=== PATIENT | male | born 1985 | race Caucasian/White ===

== ENCOUNTER 2021-11-04 13:56 | Emergency (ER) | payer OTHER, SELFPAY ==
--- NOTE | ~2021-11-04 | US_ITS ---
US scrotum doppler INDICATION: Left testicular pain for one month TECHNIQUE: Testicular sonogram utilizing grayscale and color Doppler FINDINGS: The testes are normal in size and appearance. No focal lesions are seen. The right testes measures 4.9 x 2.9 x 2.5 cm centimeters, and the left testis measures 4 x 3.2 x 2.6 cm cm. There is n ormal vascular flow to both testes. The right and left epididymides appear normal. There is no varicocele or hydrocele. IMPRESSION: 1. NORMAL TESTICULAR ULTRASOUND. Reviewed, dictated and finalized at location A.
[2021-11-04 14:02] VITALS: BP 143/76; PULSE 75; RESP 16; TEMP 36.5; O2SAT 98
--- NOTE | 2021-11-04 14:20 | ED.GENADULT ---
HPI - General Adult General Chief complaint: Urogenital-Male Stated complaint: testicular pain Time Seen by Provider: 11/04/21 13:58 Source: RN notes reviewed History of Present Illness HPI narrative: Patient presents emergency department from home for left testicular pain. Patient states that symptoms of been ongoing for the past 3 weeks. States the pain is aching in the left testicle with mild radiation to left lower abdomen states nothing makes the pain better or worse he states the pain feels like a strain at times. He denies having fevers or chills nausea vomiting dysuria or urethral discharge. States he has not been sexually active for the past 3 months he denies any other symptoms Related Data Home Medications Medication Instructions Recorded Confirmed dextroamphetamine-amphetamine 20 11/04/21 mg tablet Allergies Allergy/AdvReac Type Severity Reaction Status Date / Time No Known Allergies Allergy Verified 11/04/21 14:01 Review of Systems Review of Systems: Gen.: Denies fevers or chills ENT: Denies congestion Respiratory: Denies shortness of breath or cough CV: Denies chest pain or palpitations GI: Denies nausea, emesis or diarrhea reports mild radiation of pain in the left lower abdomen see HPI Musculoskeletal: Denies back pain or muscle pain Neuro: Denies numbness, tingling, weakness or focal weakness Skin: Denies rash Except as documented, all other systems reviewed and negative [facility] Past Medical History Medical History (Updated 11/04/21 @ 15:35 by James Roche DO) Patient denies significant medical history Social History Social History (Updated 11/04/21 @ 14:21 by James Roche DO) Smoking status: Never smoker Alcohol intake: current Exam Narrative: APPEARANCE: No acute distress, nontoxic, resting in bed EYES: EOMI HEENT: Normocephalic, atraumatic, OMM RESPIRATORY: No respiratory distress ABDOMINAL: Soft, nontender, nondistended, no rebound or guarding : No skin lesions no phimosis or paraphimosis, no scrotal swelling or erythema, the right testicle is nontender palpation mild tenderness over the left posterior testicle with no swelling noted no hernias palpated MUSCULOSKELETAl: Moves all extremities. No clubbing, cyanosis or edema. NEURO: Awake and alert. Following commands, speech normal, no focal deficits SKIN:: Warm, dry. No rashes lesions or abrasions PSYCHIATRIC: Normal affect/mood, Course Course Emergency Course: Discussed with patient results of workup and diagnosis. Discussed need for follow-up with primary care, proper use of medication, and reasons to return to the emergency department. Patient understands and agrees to current treatment plan Vital Signs Vital signs: Vital Signs Temperature 97.7 F 11/04/21 14:02 Pulse Rate 75 11/04/21 14:02 Respiratory Rate 16 11/04/21 14:02 Blood Pressure 143/76 H 11/04/21 14:02 Pulse Oximetry 98 11/04/21 14:02 Temperature 97.7 F 11/04/21 14:02 Pulse Rate 75 11/04/21 14:02 Respiratory Rate 16 11/04/21 14:02 Blood Pressure 143/76 H 11/04/21 14:02 Pulse Oximetry 98 11/04/21 14:02 Medical Decision Making Vital Signs Vital Signs: Vital Signs Temperature 97.7 F 11/04/21 14:02 Pulse Rate 75 11/04/21 14:02 Respiratory Rate 16 11/04/21 14:02 Blood Pressure 143/76 H 11/04/21 14:02 Pulse Oximetry 98 11/04/21 14:02 Temperature 97.7 F 11/04/21 14:02 Pulse Rate 75 11/04/21 14:02 Respiratory Rate 16 11/04/21 14:02 Blood Pressure 143/76 H 11/04/21 14:02 Pulse Oximetry 98 11/04/21 14:02 Lab Data Labs: Lab Results 11/04/21 Range/Units 14:55 Urine Color Yellow (Yellow) Urine Appearance Clear (Clear) Urine pH 8.0 (5.0-9.0) Ur Specific Snyder 1.015 (1.001-1.035) Urine Protein Negative (Negative) mg/dL Urine Glucose (UA) Negative (Negative) mg/dL Urine Ketones Negative (Negative) mg/dL Ur Blood (Man) N
[2021-11-04 15:04] LABS: Appearance Urine Clear (Clear); Bilirubin Urine Negative (Negative); Blood Urine Negative (Negative); Color Urine Yellow (Yellow); Glucose Urine UA Negative (Negative); Ketones Urine Negative (Negative); Leukocyte Esterase Ur Negative LEU/UL (Negative); Nitrate Urine Negative (Negative); Protein Urine Negative (Negative); Specific Grav Ur 1.015 (1.001-1.035); Urobilinogen Urine 0.2 mg/dL (<2.0)
[2021-11-04 15:05] LABS: Add Urine Microscopic? NO
[2021-11-04] MEDS: IBUPROFEN 600 MG TABLET PO (15:31)
[2021-11-04 15:38] VITALS: BP 128/86; PULSE 84; RESP 16; O2SAT 99
== END 2021-11-04 15:39 | disposition home or self-care (01) ==
PROVIDERS: Emergency Provider Emergency Medicine
DX: N50.812 Left testicular pain (principal)
CPT/HCPCS: 76870; 81003; 93976; 99284; A9270